=== PATIENT | male | born 1985 | race Native Hawaiian/Other Pacific Islander ===

== ENCOUNTER 2023-09-07 19:58 | Emergency (ER) | payer SELFPAY ==
[2023-09-07 20:09] VITALS: BP 121/66; PULSE 72; RESP 21; TEMP 36.6; O2SAT 100; BMI 27.4
--- NOTE | 2023-09-07 20:22 | CTR_ITS ---
PROCEDURE INFORMATION: Exam: CT Head Without Contrast Exam date and time: 09/07/2023 8:33 PM Age: 38 years old Clinical indication: Syncope and collapse; Additional info: Syncopal episode, neck pain TECHNIQUE: Imaging protocol: Computed tomography of the head without contrast. COMPARISON: No relevant prior studies available. FINDINGS: Brain: No focal hemorrhage or midline shift is identified. Cerebral ventricles: No ventriculomegaly or evidence of acute hydrocephalus. Paranasal sinuses: The partially assessed sinuses are grossly clear. Mastoid air cells: Visualized mastoid air cells are well aerated. Bones: Unremarkable. No acute fracture. Soft tissues: Unremarkable. PROCEDURE INFORMATION: Exam: CTA Head With Contrast, Arteriography Exam date and time: 09/07/2023 8:33 PM Age: 38 years old Clinical indication: Syncope and collapse; Additional info: Syncopal episode, neck pain TECHNIQUE: Imaging protocol: Computed tomographic angiography of the head with contrast. Exam focused on the arteries. 3D rendering (Not supervised by radiologist): MIP and/or 3D reconstructed images were created by the technologist. Radiation optimization: All CT scans at this facility use at least one of these dose optimization techniques: automated exposure control; mA and/or kV adjustment per patient size (includes targeted exams where dose is matched to clinical indication); or iterative reconstruction. Contrast material: OMNI 350; Contrast volume: 100 ml; Contrast route: INTRAVENOUS (IV); COMPARISON: No relevant prior studies available. RADIATION DOSE METRICS: Total DLP (mGy-cm): 1137.02 FINDINGS: ANTERIOR CIRCULATION: Right internal carotid artery: Intracranial segment is patent with no significant stenosis. No aneurysm. Right middle cerebral artery: No occlusion or significant stenosis. No aneurysm. Right anterior cerebral artery: No occlusion or significant stenosis. No aneurysm. Left internal carotid artery: Intracranial segment is patent with no significant stenosis. No aneurysm. Left middle cerebral artery: No occlusion or significant stenosis. No aneurysm. Left anterior cerebral artery: No occlusion or significant stenosis. No aneurysm. POSTERIOR CIRCULATION: Mild diffuse hypoplasia. Right vertebral artery: No occlusion or significant stenosis. No aneurysm. Left vertebral artery: No occlusion or significant stenosis. No aneurysm. Basilar artery: No occlusion or significant stenosis. No aneurysm. Right posterior cerebral artery: No occlusion or significant stenosis. No aneurysm. origin. Left posterior cerebral artery: No occlusion or significant stenosis. No aneurysm. origin. Brain: No focal hemorrhage or midline shift identified. Cerebral ventricles: No evidence of ventriculomegaly or hydrocephalus. The ventricles seem age-appropriate. Bones/joints: Unremarkable. No acute fracture. Soft tissues: Unremarkable. PROCEDURE INFORMATION: Exam: CTA Neck With Contrast Exam date and time: 09/07/2023 8:33 PM Age: 38 years old Clinical indication: Syncope and collapse; Additional info: Syncopal episode, neck pain TECHNIQUE: Imaging protocol: Computed tomographic angiography of the neck with contrast. Exam focused on the cervical segments of the vasculature. 3D rendering (Not supervised by radiologist): MIP and/or 3D reconstructed images were created by the technologist. Radiation optimization: All CT scans at this facility use at least one of these dose optimization techniques: automated exposure control; mA and/or kV adjustment per patient size (includes targeted exams where dose is matched to clinical indication); or iterative reconstruction. Contrast material: OMNI 350; Contrast volume: 100 ml; Contrast route: INTRAVENOUS (IV); COMPARISON: No relevant prior studies available. RADIATION DOSE METRICS: Total DLP (mGy-cm): 1137.02 FINDINGS: Right common carotid artery: No stenosis. No dissection or occlusion. Right internal carotid artery: No stenosis of the extracranial segment. No dissection or occlusion. Right external carotid artery: No occlusion or high-grade stenosis identififed. Left common carotid artery: No stenosis. No dissection or occlusion. Left internal carotid artery: No stenosis of the extracranial segment. No dissection or occlusion. Left external carotid artery: No occlusion or high-grade stenosis identififed. Right vertebral artery: No stenosis. No dissection or occlusion. Left vertebral artery: No stenosis. No dissection or occlusion. Hypoplastic. Soft tissues: No significant soft tissue swelling or other acute finding noted. Bones/joints: No acute fracture. CT/CT angio headneck* [id number] IMPRESSION: No acute intracranial abnormality. IMPRESSION: No large vessel stenosis or occlusion. IMPRESSION: No stenosis or occlusion. REFERENCES: NASCET CRITERIA. The degree of stenosis in the cervical segment of the internal carotid artery is based on NASCET criteria. Normal is no stenosis. Mild is less than 50% stenosis. Moderate is 50-69% stenosis. Severe is 70% to 99% stenosis. Total occlusion is no detectable patent lumen.
--- NOTE | 2023-09-07 20:24 | ED_ITS ---
HPI - Syncope 2 General: Chief Complaint: Syncope Stated Complaint: sycnopal activity Time Seen by Provider: 09/07/23 20:14 History of Present Illness: 38-year-old male patient comes in today with syncopal episode. Patient reports that he had felt a pop in his neck but no significant pain. Patient reports that shortly thereafter he got up to go outside and on his way outside he passed out. Patient was able to get back up to his feet but then passed out again. Patient appears slightly pale. Patient does endorse the use of nicotine. Patient denies any fever or chills. Patient reports no cough or congestion. Patient moves neck without difficulty at this time. Review of Systems 2 General: Reports: 10 or more systems reviewed and unremarkable except in HPI and below Physical Exam 2 Const: COMMON NORMALS: alert HENMT: COMMON NORMALS: normocephalic HEAD & SCALP: normocephalic Neck/C-Spine: COMMON NORMALS: full ROM CERVICAL SPINE: No Paracervical muscle tenderness Chest: COMMONS NORMALS: normal inspection of the chest Resp: COMMON NORMALS: normal respiratory effort and clear to auscultation bilaterally AUSCULTATION: clear to auscultation bilaterally Cardio: COMMON NORMALS: regular rate and regular rhythm RATE: regular rate RHYTHM: regular rhythm GI: COMMON NORMALS: Soft to palpation and non-tender PALPATION: Yes Soft to palpation Back/Pelvis: COMMON NORMALS: thoracic and lumbar spine normal to inspection Extremity: COMMON NORMALS: normal to inspection Neuro: SENSORIUM/ORIENTATION: Yes alert Skin: COMMON NORMALS: turgor normal GENERAL SKIN EXAM: turgor normal Course 2 Vital Signs: Vital signs: Vital Signs Temperature 97.8 F 09/07/23 20:09 Pulse Rate 72 09/07/23 20:09 Respiratory Rate 21 H 09/07/23 20:09 Blood Pressure 121/66 09/07/23 20:09 Pulse Oximetry 100 09/07/23 20:09 Oxygen Delivery Me thod Room Air 09/07/23 20:09 MDM - Syncope Medical Decision Making 40-year-old male patient comes in with 2-3 episodes of syncope. Patient denies any chest pain or shortness of breath. Patient reports some mild neck discomfort from where his neck popped. Vital signs are normal. Differential diagnosis includes but not limited to substance use, intracranial bleeding, dissection of vertebral artery, panic disorder, vasovagal syncope, orthostatic hypotension. CTA of the head and neck showed no intracranial abnormality or signs of stenosis or occlusion. CBC and CMP was unremarkable. Patient did have some increase in lactic at 2.5. Patient was given 2 L of IV fluid. Patient felt much better after the fluids and was discharged home. The patient most likely had a vasovagal syncopal episode most likely from orthostatic hypotension from getting up from sitting. Recommended follow-up with primary care in 3 to 5 days for recheck and further evaluation. Patient reported understanding agreed to plan. Lab Data 09/07/23 21:02 09/07/23 21:02 Radiology Impressions Head/Neck CTA 09/07/23 20:22 IMPRESSION: No acute intracranial abnormality. IMPRESSION: No large vessel stenosis or occlusion. IMPRESSION: No stenosis or occlusion. REFERENCES: NASCET CRITERIA. The degree of stenosis in the cervical segment of the internal carotid artery is based on NASCET criteria. Normal is no stenosis. Mild is less than 50% stenosis. Moderate is 50-69% stenosis. Severe is 70% to 99% stenosis. Total occlusion is no detectable patent lumen. Laboratory Results WBC 10.08 10^3/uL (3.29-11.43) 09/07/23 21: RBC 5.19 10^6/uL (3.85-5.65) 09/07/23 21: Hgb 14.80 g/dL (11.27-16.99) 09/07/23 21: Hct 43.8 % (37-53) 09/07/23 21: MCV 84.4 fl (82-101) 09/07/23 21: MCH 28.5 pg (27-33) 09/07/23 21: MCHC 33.8 g/dL (30-55) 09/07/23 21: RDW 12.3 % (12.1-15.1) 09/07/23 21: Plt Count 181 10^3/cmm (157-399) 09/07/23 21: MPV 11.4 fL (7.4-10.4) H 09/07/23 21:02 Neut % (Auto) 81.2 % 09/07/23 21:02 Lymph % (Auto) 12.4 % 09/07/23 21:02 [place] % (Auto) 5.4 % 09/07/23 21:02 Eos % (Auto) 0.4 % 09/07/23 21:02 Baso % (Auto) 0.2 % 09/07/23 21:02 Neut # (Auto) 8.19 10^3/uL (1.8-7.7) H 09/07/23 21:02 Lymph # (Auto) 1.3 10^3/uL (0.8-4.8) 09/07/23 21:02 [place] # (Auto) 0.5 10^3/uL (0.2-0.9) 09/07/23 21:02 Eos # (Auto) 0.0 10^3/uL (0.0-0.8) 09/07/23 21:02 Baso # (Auto) 0.0 10^3/uL (0.0-0.1) 09/07/23 21:02 Nucleated RBC % (auto) 0 % 09/07/23 21:02 Nucleated RBCs # 0.0 /100WBC 09/07/23 21:02 PT 13.90 SECONDS (12.1-14.9) 09/07/23 21:02 INR 1.04 (0.8-1.2) 09/07/23 21:02 APTT 23.9 SECONDS (23.9-36.7) 09/07/23 21:02 Sodium 136 mmol/L (136-145) 09/07/23 21:02 Potassium 3.7 mmol/L (3.5-5.1) 09/07/23 21:02 Chloride 100 mmol/L (98-107) 09/07/23 21:02 Carbon Dioxide 25 mmol/L (22-29) 09/07/23 21:02 Anion Gap 14.7 (5-19) 09/07/23 21:02 BUN 11 mg/dL (6-20) 09/07/23 21:02 Creatinine 0.9 mg/dL (0.7-1.2) 09/07/23 21:02 GFR Calculation 95.5 mL/min (90-130) 09/07/23 21:02 Glucose 101 mg/dL (65-115) 09/07/23 21:02 Calculated Osmolality 282 mOsm/kg (285-295) L 09/07/23 21:02 Lactic Acid 2.5 mmol/L (0.5-2.2) H 09/07/23 21:02 Calcium 8.9 mg/dL (8.5-10.5) 09/07/23 21:02 Total Bilirubin 0.8 mg/dL (0.15-1.2) 09/07/23 21:02 AST 17 U/L (0-40) 09/07/23 21:02 ALT 27 U/L (0-41) 09/07/23 21:02 Alkaline Phosphatase 70 U/L (40-130) 09/07/23 21:02 Troponin T Baseline < 6 ng/L (0-15) 09/07/23 21:02 C-Reactive Protein 3.0 mg/L (0.0-4.9) 09/07/23 21:02 Total Protein 6.5 g/dL (6.6-8.7) L 09/07/23 21:02 Albumin 4.4 g/dL (3.5-5.2) 09/07/23 21:02 Globulin 2.1 g/dL (1.3-4.6) 09/07/23 21:02 Lipase 18 U/L (13-60) 09/07/23 21:02 Urine Color Yellow (Yellow) 09/07/23 Unknown Urine Appearance Clear (CLEAR) 09/07/23 Unknown Urine pH 8 (5-7) H 09/07/23 Unknown Ur Specific [place] 1.010 (1.005-1.030) 09/07/23 Unknown Urine Protein Neg (Negative) 09/07/23 Unknown Urine Glucose (UA) Norm (Normal) 09/07/23 Unknown Urine Ketones Negative (Negative) 09/07/23 Unknown Urine Blood Neg (Negative) 09/07/23 Unknown Urine Nitrate Negative (Negative) 09/07/23 Unknown Urine Bilirubin Neg (Negative) 09/07/23 Unknown Prot Sulfosalicylic Acd Negative (Negative) 09/07/23 Unknown Urine Urobilinogen Neg mg/dL (Negative) 09/07/23 Unknown Ur Leukocyte Esterase Negative (Negative) 09/07/23 Unknown Urine Opiates Screen Negative ng/mL (Negative) 09/07/23 Unknown Ur Barbiturates Screen Negative ng/mL (Negative) 09/07/23 Unknown Ur Phencyclidine Scrn Negative ng/mL (Negative) 09/07/23 Unknown Ur Amphetamines Screen Negative ng/mL (Negative) 09/07/23 Unknown U Benzodiazepines Scrn Negative ng/mL (Negative) 09/07/23 Unknown Urine Cocaine Screen Negative ng/mL (Negative) 09/07/23 Unknown U Marijuana (THC) Screen Negative ng/mL (Negative) 09/07/23 Unknown Ethyl Alcohol < 10 mg/dL (0-10) 09/07/23 21:02 All radiology interpretation(s) finalized by discharge EKG Data EKG 1: I personally reviewed and interpreted this EKG as follows: EKG interpretation date: 09/07/23 EKG interpretation time: 21:15 Prior EKG tracings: not available for review Interpretation: EKG shows a sinus rhythm with a regular rate at [address] elevation or ectopy is noted. No prior exam was available for comparison. Artifact was noted on the EKG. Discharge Plan Discharge Patient Disposition: Home Clinical Impression: Vasovagal syncope Condition: Stable Discharge Orders: Discharge ED (Routine); Ordered 09/07/23 Ordered By: Flip Benavides Referrals: Chandler Becerra MD [Primary Care Provider] - Discharge Diet: Usual diet Discharge Activity: Increase activity as tolerated Patient Instructions: Syncope (ED) Activity Restrictions/Additional Instructions: Follow-up with primary care in 3 to 5 days. Change positions slowly. Drink plenty water and fluids. Return to ER for worsening symptoms such as severe chest pain, shortness of breath, fever greater than 100.4, or severe headache. Coding Level of Care Code ED Strategy Analyst for Maylin Drake
[2023-09-07] MEDS: iohexol 350 mg/mL 500 mL Btl (per mL) IV (20:49)
--- NOTE | 2023-09-07 21:09 | ECG_ITS ---
[facility] Test Date: 2023-09-07 Pat Name: Rubén Reyes Department: Room: Gender: Male Mid Level Practitioner: : 1985 Requested By: Flip Pope Order Number: [id number] Aleisha MD: Conchita Ni M.D. Measurements Intervals [place] Rate: 83 P: 36 TX: 172 QRS: 8 QRSD: 92 T: 35 QT: 344 QTc: 405 Interpretive Statements SINUS RHYTHM No previous ECG available for comparison Electronically Signed On 09-08-2023 0:10:48 CDT by Conchita Ni M.D. [email or web address]
[2023-09-07 21:11] LABS: Basophils % 0.2 %; Eosinophils % 0.4 %; Hematocrit 43.8 % (37-53); Lymphocytes # 1.3 10^3/uL (0.8-4.8); Lymphocytes % 12.4 %; Mean Corpuscular HGB Conc 33.8 g/dL (30-55); Mean Corpuscular Hemoglobin 28.5 pg (27-33); Mean Corpuscular Volume 84.4 fl (82-101); Mean Platelet Volume 11.4 fL (7.4-10.4); Monocytes # 0.5 10^3/uL (0.2-0.9); Monocytes % 5.4 %; Neutrophils # 8.19 10^3/uL (1.8-7.7); Neutrophils % 81.2 %; Nucleated Red Blood Cells % 0 %; Platelet Count 181 10^3/cmm (157-399); Red Blood Count 5.19 10^6/uL (3.85-5.65); Red Cell Distribution Width 12.3 % (12.1-15.1); White Blood Count 10.08 10^3/uL (3.29-11.43)
[2023-09-07 21:27] LABS: INR 1.04 (0.8-1.2)
[2023-09-07 21:28] LABS: Partial Thromboplastin Time 23.9 SECONDS (23.9-36.7)
[2023-09-07 21:31] LABS: Troponin(5th) Baseline < 6 ng/L (0-15)
[2023-09-07 21:32] LABS: Lactic Sepsis W/Reflex 2.5 mmol/L (0.5-2.2)
[2023-09-07 21:38] LABS: Alanine Aminotransferase 27 U/L (0-41); Albumin Level 4.4 g/dL (3.5-5.2); Alkaline Phosphatase 70 U/L (40-130); Anion Gap 14.7 (5-19); Aspartate Amino Transferase 17 U/L (0-40); Blood Urea Nitrogen 11 mg/dL (6-20); Calcium 8.9 mg/dL (8.5-10.5); Carbon Dioxide 25 mmol/L (22-29); Chloride 100 mmol/L (98-107); Creatinine Clr Calc Pharmacy 110.9404; Globulin 2.1 g/dL (1.3-4.6); Glomerular Filtration Rate 95.5 mL/min (90-130); Glucose 101 mg/dL (65-115); Osmolality Calculated 282 mOsm/kg (285-295); Potassium 3.7 mmol/L (3.5-5.1); Sodium 136 mmol/L (136-145); Total Bilirubin 0.8 mg/dL (0.15-1.2); Total Protein 6.5 g/dL (6.6-8.7)
[2023-09-07 21:40] LABS: Alcohol Level < 10 mg/dL (0-10)
[2023-09-07 21:49] LABS: Add Urine Microscopic? NO; Charge for UA Resulting for Rev
[2023-09-07 21:56] LABS: Bilirubin Urine Neg (Negative); Blood Urine Neg (Negative); Glucose Urine UA Norm (Normal); Ketones Urine Negative (Negative); Leukocyte Esterase Urine Negative (Negative); Nitrate Urine Negative (Negative); Protein Urine Neg (Negative); Sulfosalicylic Acid Urine Negative (Negative); Urine Appearance Clear (CLEAR); Urine Color Yellow (Yellow); Urobilinogen Urine Neg (Negative); pH Urine 8 (5-7)
[2023-09-07 21:59] LABS: Amphetamines Screen Urine Negative (Negative); Barbiturates Screen Urine Negative (Negative); Benzodiazepines Screen Urine Negative (Negative); Cocaine Screen Urine Negative (Negative); Opiate Screen Urine Negative (Negative); PCP Screen Urine Negative (Negative); THC Screen Urine Negative (Negative)
[2023-09-07] MEDS: sodium chloride 0.9% 1,000 ML 999 ML IV (22:24)
[2023-09-07 22:42] LABS: Lipase 18 U/L (13-60)
[2023-09-07 22:44] VITALS: BP 143/78; PULSE 86; RESP 18; O2SAT 97
[2023-09-07 22:55] LABS: Reflex Lactate Order REFLEX LACTIC ORDERD
[2023-09-07 23:11] VITALS: BP 136/68; PULSE 80; RESP 17; O2SAT 96
[2023-09-07 23:30] LABS: Troponin 5 2HR Delta 0.00001 ABS# (0-10)
== END 2023-09-07 23:14 | disposition home or self-care (01) ==
PROVIDERS: Emergency Provider Nurse Practitioner Family; PCP Family Medicine
DX: R55 Syncope and collapse (principal)
CPT/HCPCS: 70496; 70498; 80053; 80306; 80307; 81003; 83605; 83690; 84484; 85025; 85610; 85730; 86140; 93005; 99285; J7030; Q9967